=== PATIENT | male | born 1990 | race African-American/Black ===

== ENCOUNTER 2016-05-07 10:40 | Emergency (ER) | payer OTHER ==
[~2016-05-07] VITALS: Ht 188 cm; Wt 90.7 kg
--- NOTE | 2016-05-07 11:20 | ED GI/GU/ABDOMINAL COMPLAINT ---
History of Present Illness General Chief Complaint: Abdominal Pain/Flank Pain Stated Complaint: ABD PAIN Source: patient Exam Limitations: no limitations Vital Signs & Intake/Output Vital Signs & Intake/Output Vital Signs Date Time Temp Pulse Resp B/P Pulse O2 O2 Flow FiO2 Ox Delivery Rate 05/07 1256 98.0 82 20 128/71 99 Room Air Room Air 05/07 1107 97.6 88 20 122/78 99 Room Air Room Air Allergies Coded Allergies: No Known Allergies (05/07/16) Reconcile Medications Omeprazole Magnesium (Prilosec Otc) 20 MG TABLET.DR 1 TAB PO DAILY pud Triage Note: PT TO ED WITH C/IO DIFFUSE ABD PAIN X WEEKS, DENIES NAUSEA, VOMITING OR DIARRHEA, DENIES URINARY DIFF/PAIN. LAST NORMAL BM THIS MORNING. Triage Nurses Notes Reviewed? yes Onset: Gradual Duration: intermittent Timing: recent history Quality/Severity: moderate Severity Numbers: 6 Location: epigastric Radiation: no radiation Activities at Onset: eating HPI: Patient is a 25-year-old male with an unremarkable past medical history who presents emergent with a 3 week history of intermittent epigastric abdominal discomfort. Patient states that last week he had severe epigastric pain after eating food and which she presented to [facility] emergency room which he received CT scan and blood work and states that he received in the ER antibiotic however nothing was prescribed and patient was safely discharged. He states that all blood work and CT scan was unremarkable. Patient states that the abdominal pain usually is onset after eating food. Patient states that last night he ate [employer] and had acute onset 2 hours later of epigastric differential discomfort and one episode of nonbloody nonbilious emesis. Patient has been able tolerate by mouth this a.m. Last bowel movement was in the last 24 hours no blood no melena noted. Patient has been taking ibuprofen for his symptoms however prior to 3 weeks ago he does not take this medication on a regular basis. Denies any significant alcohol use. Denies any fever chills chest pain and arm pain jaw pain current nausea or vomiting dysuria hematuria or back pain. (BYRON NUNEZ,HUYEN) Past History Travel History Traveled to [place] past 21 day No Medical History Any Pertinent Medical History? 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 No (HUYEN LUGO) Review of Systems Review of Systems Constitutional: Reports: no symptoms. EENTM: Reports: no symptoms. Respiratory: Reports: no symptoms. Cardiovascular: Reports: no symptoms. GI: Reports: see HPI, abdominal pain, nausea. Genitourinary: Reports: no symptoms. Musculoskeletal: Reports: no symptoms. Skin: Reports: no symptoms. Neurological/Psychological: Reports: no symptoms. Hematologic/Endocrine: Reports: no symptoms. Immunologic/Allergic: Reports: no symptoms. All Other Systems: Reviewed and Negative (HUYEN LUGO) Physical Exam Physical Exam General Appearance: no apparent distress Gastrointestinal: normal bowel sounds, soft, MODERATES EPIGASTRIC POINT TENDERNESS, MODERATE RIGHT UPPER QUADRANT POINT TENDERNESS NOTED, NO RIGHT LOWER QUADRANT TENDERNESS NO PERITONEAL SIGNS NO REBOUND TENDERNESS Comments: Well-developed well-nourished person in no acute distress HEENT: Normal EENT exam, Neck: Supple, no lymphadenopathy, normal range of motion without pain or tenderness Back: Nontender, no CVA tenderness. Cardiovascular: Regular rate and rhythms no murmurs rubs or gallops, normal JVP Respiratory: Chest nontender. No respiratory distress.breath sounds clear to auscultation bilaterally Extremity: No edema, no calf tenderness to palpation, normal and equal pulses. Neuro: Alert oriented x3, motor sensory normal, Skin: No appreciable rash on exposed skin, skin is warm and dry. Psych: Mood and affect is normal, memory and judgment is normal. Core Measures ACS in differential dx? No Severe Sepsis Present: No Septic Shock Present: No (HUYEN LUGO) Progress Differential Diagnosis: AAA, AMI, appendicitis, biliary colic, bowel obstruction , cholecystitis, diverticulitis, epididymitis, esophageal varices, gastritis, hepatitis, hernia, hemorrhoids, ischemic bowel, inflamm bowel dis, Marley-Sherry tear, orchitis, pancreatitis, prostatitis, peptic ulcer, PUD/GERD, perforated viscous, pyelonephritis, SBO, STD, testicular torsion, ureterolithiasis, urinary retention, urethritis, UTI/pyelo Plan of Care: Orders Procedure Date/time Status LIPASE 05/07 1155 Complete DIRECT BILIRUBIN 05/07 1155 Complete COMPREHENSIVE METABOLIC PANEL 05/07 1155 Complete CBC WITHOUT DIFFERENTIAL 05/07 1155 Complete AMYLASE 05/07 1155 Complete Laboratory Tests 05/07/16 1200: Anion Gap 7, Estimated GFR > 60, BUN/Creatinine Ratio 11.3, Glucose 99, Calcium 9.1, Total Bilirubin 0.6, Direct Bilirubin 0.4, AST 17, ALT 22, Alkaline Phosphatase 63, Total Protein 6.8, Albumin 3.7, Globulin 3.1, Albumin/Globulin Ratio 1.2, Amylase 108, Lipase 114, CBC w Diff NO MAN DIFF REQ, RBC 4.96, MCV 87.1, MCH 28.5, RDW 13.2, MPV 9.3, Gran % 55.5, Lymphocytes % 36.3, Monocytes % 6.2, Eosinophils % 1.5, Basophils % 0.5, Absolute Granulocytes 3.4, Absolute Lymphocytes 2.2, Absolute Monocytes 0.4, Absolute Eosinophils 0.1, Absolute Basophils 0, PUBS MCHC 32.7 L Patient currently is in no apparent distress, has concerns of epigastric point tenderness on exam patient was given GI cocktail and had significant resolution of his presenting complaints. Patient was able tolerate this. Patient has no right lower quadrant pain and no concerns of appendicitis. Patient had unremarkable blood work and at this time I suspect patient have GERD -peptic ulcer disease and which I strongly advised patient to follow up with documentation supervisor and will comply discharge instructions and had no questions (HUYEN LUGO) Initial ED EKG: none (HUYEN LUGO) Departure Departure Disposition: HOME OR SELF CARE Condition: Stable Clinical Impression Primary Impression: Epigastric pain Secondary Impressions: PUD (peptic ulcer disease) Referrals: MARY CHURCH,SHENA RUEDA (PCP/Family) Additional Instructions: As discussed begin [id number] Maalox if needed for future abdominal discomfort. Begin the prescription of Prilosec as directed for your symptoms. This prescription is waiting at [facility]. Today please make an appointment to be evaluated by documentation supervisor Dr. Vickesr for further evaluation treatment. Please avoid fatty foods, spicy foods, alcohol and NSAID such as medication such as Aleve ibuprofen or Advil as this may worsen your symptoms. If symptoms worsen return to emergency room. Departure Forms: Customer Survey General Discharge Information Prescriptions: Current Visit Scripts Omeprazole Magnesium (Prilosec Otc) 1 TAB PO DAILY #30 TAB (HUYEN LUGO) PA/LUGGAGE REPAIRER Co-Sign Statement Statement: ED Attending supervision documentation- [] I saw and evaluated the patient. I have also reviewed all the pertinent lab results and diagnostic results. I agree with the findings and the plan of care as documented in the PA's/LUGGAGE REPAIRER's documentation. x I have reviewed the ED Record and agree with the PA's/LUGGAGE REPAIRER's documentation. [] Additions or exceptions (if any) to the PAs/LUGGAGE REPAIRER's note and plan are summarized below: [] (KAR CHURCH,NEHAL)
[2016-05-07 12:11] LABS: ABSOLUTE BASOPHIL COUNT 0 /CUMM (0.0-0.2); ABSOLUTE EOSINOPHIL COUNT 0.1 /CUMM (0.0-0.7); ABSOLUTE GRANULOCYTE CT 3.4 /CUMM (1.4-6.5); ABSOLUTE LYMPH COUNT 2.2 /CUMM (1.2-3.4); ABSOLUTE MONOCYTE COUNT 0.4 /CUMM (0.10-0.60); BASOPHIL % 0.5 % (0.0-2.0); EOSINOPHIL % 1.5 % (0-5); GRANULOCYTE % 55.5 % (42.2-75.2); HEMATOCRIT 43.2 % (42-52); MEAN CORPUSCULAR HGB 28.5 PG (27.0-31.0); MEAN CORPUSCULAR HGB CONC 32.7 G/DL (33.0-37.0); MEAN CORPUSCULAR VOLUME 87.1 FL (80.0-94.0); MEAN PLATELET VOLUME 9.3 FL (7.4-10.4); PLATELET COUNT 229 /CUMM (130-400); RBC DISTRIBUTION WIDTH 13.2 % (11.5-14.5); RED BLOOD CELL CT 4.96 /CUMM (4.70-6.10); WHITE BLOOD CELL COUNT 6.1 /CUMM (4.8-10.8)
[2016-05-07] MEDS ORDERED: PRILOSEC OTC20 M1 PO (12:39)
[2016-05-07 12:56] VITALS: BP 128/71
== END 2016-05-07 12:56 ==
LOC: ERH 10:40
PROVIDERS: Physician Assistant
DX: K27.9 Peptic ulcer, site unspecified, unspecified as acute or chronic, without hemorrhage or perforation (principal)

== ENCOUNTER 2016-05-26 01:23 | Emergency (ER) | payer OTHER ==
[~2016-05-26] VITALS: Ht 188 cm; Wt 95.3 kg
[~2016-05-26 01:23] MED LIST: PRILOSEC OTC20 M1 PO
--- NOTE | 2016-05-26 03:33 | ED NECK/BACK PAIN COMPLAINT ---
History of Present Illness General Chief Complaint: General Adult Stated Complaint: ABD PAIN N/V/D WEAKNESS/ CHILLS Source: patient Exam Limitations: no limitations Vital Signs & Intake/Output Vital Signs & Intake/Output Vital Signs Date Time Temp Pulse Resp B/P Pulse O2 O2 Flow FiO2 Ox Delivery Rate 05/26 0249 97.5 87 18 119/92 98 Allergies Coded Allergies: No Known Allergies (05/07/16) Reconcile Medications Dicyclomine Hydrochloride (Bentyl) 10 MG CAPSULE 1 CAP PO TID PRN SPASM Omeprazole Magnesium (Prilosec Otc) 20 MG TABLET.DR 1 TAB PO DAILY pud Ondansetron (Zofran Odt) 4 MG TAB.RAPDIS 1 TAB PO Q6 PRN NAUSEA Triage Note: PT C/O DIFFUSE ABDOMINAL PAIN, NAUSEA, HEADACHE, AND CHILLS FOR TWO DAYS. DENIES V/D AND FEVER. Triage Nurses Notes Reviewed? yes Onset: Abrupt Duration: day(s): (2) Timing: multiple episodes today Associated Symptoms: abdominal pain, nausea HPI: 25 year old male who presents for abdominal pain, nausea and chills and headache for 2 days. He denies any vomiting or diarrhea. Currently feels much better. Reports that he called into work because he was sick and needs a note. Past History Travel History Traveled to [place] past 21 day No Medical History Any Pertinent Medical History? 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 No Review of Systems Review of Systems Constitutional: Denies: chills, fever. Eyes: Reports: no symptoms. Ears, Nose, Throat, Mouth: Reports: no symptoms. Respiratory: Denies: cough, short of breath. Cardiovascular: Denies: chest pain, palpitations. Gastrointestinal/Abdominal: Reports: abdominal pain, nausea. Denies: diarrhea, vomiting. Musculoskeletal: Reports: no symptoms. Skin: Reports: no symptoms. Neurological/Psychological: Reports: headache. All Other Systems: Reviewed and Negative Physical Exam Physical Exam General Appearance: well developed/nourished, alert, awake, mild distress Head: atraumatic Eyes: Bilateral: PERRL, EOMI. Ears, Nose, Throat, Mouth: hearing grossly normal Neck: normal inspection, supple, full range of motion Respiratory: normal breath sounds Cardiovascular: regular rate/rhythm Peripheral Pulses: 2+ radial (R), 2+ radial (L) Gastrointestinal: normal bowel sounds, soft, tenderness (MINIMAL DIFFUSE), NO REBOUND OR GUARDING Back: normal inspection Extremities: normal range of motion Neurologic/Psych: awake, alert, oriented x 3, normal mood/affect Skin: intact, normal color, warm/dry Progress Differential Diagnosis: GASTRITIS, VIRAL SYNDROME Plan of Care: CURRENTLY IMPROVED, STATES HE JUST NEEDS A NOTE FOR WORK. Departure Departure Time of Disposition: 337 Disposition: HOME OR SELF CARE Condition: Stable Clinical Impression Primary Impression: Gastritis Referrals: UNKNOWN (PCP/Family) Additional Instructions: TAKE THE ZOFRAN AND BENTYL DIRECTED. FOLLOW UP WITH YOUR DOCTOR IN THE OFFICE. RETURN TO THE ER IF WORSE. Departure Forms: Customer Survey General Discharge Information Prescriptions: Current Visit Scripts Ondansetron (Zofran Odt) 1 TAB PO Q6 PRN NAUSEA #20 TAB Dicyclomine Hydrochloride (Bentyl) 1 CAP PO TID PRN SPASM #20 CAP
[2016-05-26] MEDS ORDERED: BENTYL10 M1 PO (03:38)
[2016-05-26] MEDS ORDERED: ZOFRAN ODT4 M1 PO (03:38)
[2016-05-26 03:58] VITALS: BP 120/69
== END 2016-05-26 03:59 ==
LOC: ERH 01:23
DX: K29.70 Gastritis, unspecified, without bleeding (principal)